=== PATIENT | female | born 1970 | race Caucasian/White ===

== ENCOUNTER 2024-10-06 07:38 | Emergency (ER) | payer MEDICAID ==
[~2024-10-06] VITALS: Ht 170.2 cm; Wt 117.9 kg
[2024-10-06] MEDS ORDERED: ACETAMINOPHEN 500 MG TABLET ONE (08:43)
[2024-10-06 08:44] LABS: PLATELET COUNT (AUTO) 225 K/uL (179-408); RED BLOOD CELL COUNT(AUTO) 3.58 MIL/uL (3.63-4.92); RED CELL DISTRIBUTION WIDTH 14.6 % (12.3-17.7); WHITE BLOOD COUNT (AUTO) 4.9 K/uL (3.8-11.8)
[2024-10-06] MEDS: ACETAMINOPHEN 500 MG TABLET PO ONE (08:46)
[2024-10-06 08:57] LABS: CREATININE 0.9 mg/dL (0.6-1.3); SODIUM SERUM 148 mmol/L (136-145); UREA NITROGEN, BLOOD 21 mg/dL (7-18)
[2024-10-06 09:03] LABS: ASPARTATE AMINOTRANSFERASE 8 U/L (15-37); ETHANOL < 3 MG/DL (0-10); TOTAL PROTEIN, SERUM 7.4 g/dL (6.4-8.2)
[2024-10-06 10:59] LABS: *BILIRUBIN,URIN NEGATIVE (NEGATIVE); *BLOOD, URINE NEGATIVE (NEGATIVE); *CLARITY,URINE CLEAR (CLEAR); *COLOR,URINE YELLOW (YELLOW); *KETONES,URINE NEGATIVE (NEGATIVE); *PROTEIN,URINE NEGATIVE (NEGATIVE); *UROBILINOGEN,URINE 0.2 E.U./dl (NORMAL); LEUKOCYTE ESTERASE ,URINE NEGATIVE (NEGATIVE); NITRITE, URINE NEGATIVE (NEGATIVE); UGLUCOSE NEGATIVE (NEGATIVE)
[2024-10-06 11:15] LABS: *AMPHETAMINE, URINE POSITIVE (NEGATIVE); *BARBITURATE, URINE NEGATIVE (NEGATIVE); *BENZODIAZEPINE, URINE NEGATIVE (NEGATIVE); *CANNABINOID, URINE NEGATIVE (NEGATIVE); *COCCAINE, URINE NEGATIVE (NEGATIVE); *OPIATE, URINE NEGATIVE (NEGATIVE); *PHENCYCLIDINE SCREEN,URINE NEGATIVE (NEGATIVE); FENTANYL, URINE NEGATIVE (NEGATIVE)
[2024-10-06 11:30] VITALS: BP 140/59
[2024-10-06 11:59] VITALS: BP 140/59; TEMP 97.9; O2SAT 97
== END 2024-10-06 12:04 | disposition left against medical advice (07) ==
LOC: ER 07:38
DX: S69.81XA Other specified injuries of right wrist, hand and finger(s), initial encounter (principal); M25.522 Pain in left elbow; M25.531 Pain in right wrist; R07.9 Chest pain, unspecified; R40.4 Transient alteration of awareness; R94.31 Abnormal electrocardiogram [ECG] [EKG]; Z59.00 Homelessness unspecified; Z20.822 Contact with and (suspected) exposure to COVID-19; Z98.890 Other specified postprocedural states; Y93.89 Activity, other specified; Y92.89 Other specified places as the place of occurrence of the external cause; Y99.8 Other external cause status
CPT/HCPCS: 36415; 70450; 71045; 73080; 73110; 84443; 84484; 85025; 85730; 98960; A4606; A4663; A9150; G0480